=== PATIENT | male | born 1930 | race Two or more races ===

== ENCOUNTER 2018-02-25 15:29 | Emergency (ER) | payer OTHER ==
[~2018-02-25] VITALS: Ht 162.6 cm; Wt 88.0 kg
[~2018-02-25 15:29] MED LIST: ASA81 MG; CARVEDILOL6.25 MG; COZAAR25 MG; LOSARTAN POTAS100 MG; NORVASC2.5 M1; SIMVASTATIN20 MG; VOLTAREN100 GM TP; ZANAFLEX2 M1 PO
[2018-02-25] MEDS ORDERED: DIOVAN HCT 1601 EACH PO (16:12)
== END 2018-02-25 20:20 | disposition home or self-care (01) ==
LOC: ER 15:29
DX: R53.1 Weakness (principal)